=== PATIENT | male | born 1955 | race Caucasian/White ===

== ENCOUNTER 2018-12-05 16:14 | Inpatient (IN) | payer SELFPAY ==
[2018-12-05] MEDS ORDERED: niCARdipine 20MG In NaCl 20 MG/200 ML BAG ONE (17:36)
[2018-12-05 17:37] LABS: Troponin I 0.025 ng/mL (< 0.028)
[2018-12-05 19:41] VITALS: BMI 23.4
[2018-12-05] MEDS: niCARdipine HCl 25 MG in Sodium Chloride 0.9% 250 ML 240 ML IVPB SCH ×2 (20:00→22:32)
[2018-12-05 20:13] LABS: Troponin I 0.031 ng/mL (< 0.028)
[2018-12-05] MEDS ORDERED: Acetaminophen 325 MG TAB PO PRN (20:55)
[2018-12-05] MEDS ORDERED: Potassium Chloride 20 MEQ TAB PO SCH (22:00)
[2018-12-06] MEDS: niCARdipine HCl 25 MG in Sodium Chloride 0.9% 250 ML 240 ML IVPB SCH (01:09)
--- NOTE | 2018-12-06 01:48 | HP ---
CHIEF COMPLAINT: Double vision. HISTORY OF PRESENT ILLNESS: This patient is a 63-year-old male with a history of severe hypertension with noncompliance with his medications. He presented initially to [facility] and then was transferred to this facility. The patient reports that he woke feeling fine today, ate his normal oatmeal this morning and then developed acute onset of double vision. He also had some very slight tingling in the fingertips on his left hand. He was concerned at that point that it might be a stroke, so he called his nephew and had them call an ambulance. He believes that his vision might be slightly better throughout the day, but continues to have his symptoms presently. In the [facility], the patient was noted to have significant deficits of gaze and extraocular muscles. He was also noted to have BP of 244/154 with pulse of 112. He had a head CT, which was negative other than extensive small-vessel ischemic changes and negative chest x-ray. The patient was given IV Cardene starting at 5 mg/hour and 325 mg aspirin and subsequently transferred to this facility. The patient remained on a Cardene drip and his blood pressure did somewhat improve. REVIEW OF SYSTEMS: The patient denies having had any fevers or chills. He does have occasional pain in his right middle finger. Otherwise, all systems were reviewed and all pertinent positives and negatives noted in the history of present illness. Specifically, denies any difficulty with his hearing, taste, or smell. He has no difficulty swallowing. He has had normal appetite. No weight loss. Normal neurologic function other than those things mentioned in history of present illness. PAST MEDICAL HISTORY: Notable for hypertension. The patient reports that he has been treated for hypertensive urgency in the past. He also reports that he was on blood pressure medicines previously, was clonidine. His father recently and he simply did not follow up to get his blood pressure medications refilled because he felt fine. PAST SURGICAL HISTORY: None. FAMILY HISTORY: Mother of complications of perforated bowels with result of a colonoscopy. Father had Parkinson disease with dementia and recently . SOCIAL HISTORY: The patient occasionally drinks beer. He smokes cigarettes as he is now down to less than 1 pack per day. Denies drugs. He is single. He has listed his brother, Shon Aguila as surrogate decision maker, and he is a DNAR. PHYSICAL EXAMINATION: VITAL SIGNS: Most recent BP 152/88, pulse 109, respirations 20, O2 saturation 95% on room air, and temperature 98.0. GENERAL APPEARANCE: Age-appropriate male, in no distress. He is awake, alert, oriented, in no distress. He is cooperative, but very annoyed and aggravated by having been asked the same questions several times throughout the course of his day. HEENT: The patient's pupils are reactive. He has no OP lesions. NECK: Supple and symmetric without lymphadenopathy, JVD, or bruits. HEART: Regular rate and rhythm with 2/6 murmur heard throughout the precordium. HEART: Sounds are slightly hyperdynamic. LUNGS: Clear to auscultation bilaterally with good chest wall expansion and air exchange. ABDOMEN: Soft, nontender, and nondistended. Positive bowel sounds. No masses. No organomegaly. EXTREMITIES: No cyanosis, clubbing, or edema. NEUROLOGIC: The patient has some clear deficits with his gaze, difficult to examine. It appears as though his left eye is deviating slightly laterally, although he has some difficulty gazing to the right past the midline. His eyes tend to wander a bit when trying to comply with any of the instructions, making it difficult to fully assess. He appears to have intact peripheral vision and vision in all of his central mendez. He has possibly some right upper extremity weakness in the proximal muscle group as well compared to the left. Otherwise, appears to have normal strength throughout. Has normal sensation throughout. Cranial nerves otherwise appear to be functional. DIAGNOSTIC DATA: CT scan of the head as mentioned above shows extensive chronic microvascular ischemic changes. CT angio shows no acute vascular abnormalities. There is some atherosclerosis present. LABORATORY DATA: White count 14.0, hemoglobin 18.1, platelets 238. Sodium 138, potassium 3.0, chloride 100, CO2 is 24, BUN 12, creatinine 1.06, glucose 107, lactic acid 1.5, calcium 10.2, AST 30, ALT is 21, CK 241. Initial troponin 0.017, subsequent 0.25, third is 0.031. Albumin 5.0. EKG showed sinus tachycardia with some LVH hypertrophy with strain and left atrial enlargement. IMPRESSION AND PLAN: 1. New onset diplopia, unclear etiology, but given the patient's severe hypertension, his history of smoking and chronic microvascular disease of the brain, certainly possible he has had cerebrovascular accident. The patient had aspirin previously given. Neurology was consulted by phone from [facility]. No tPA was recommended. We will obtain an MRI of the brain in the morning to further elucidate. 2. Hypertensive urgency. The patient may be having some degree of hypertensive encephalopathy causing some of the extraocular movement changes but unlikely, the blood pressure is better. Continuing with the nicardipine drip, we will titrate down as possible, trying to keep the systolic pressure around 185. 3. History of tobacco abuse. 4. Hypokalemia. We will ensure appropriate repletion. Recheck in the morning. Job ID: [id number]
[2018-12-06 04:58] LABS: #Eosinphils 0.1 thou/uL (0.0-0.7); #Lymphocytes 2.2 thou/uL (1.20-3.40); #Monocytes 0.7 thou/uL (0.11-0.59); #Neutrophils 9.4 thou/uL (1.40-6.50); %Basophils 0.3 % (0.0-1.0); %Eosinophils 1.1 % (0.0-10.0); %Lymphocytes 17.6 % (21.0-51.0); %Monocytes 5.8 % (0.0-10.0); %Neutrophils 75.2 % (42.0-75.0); Hemoglobin 16.5 g/dL (14.0-18.0); Mean Corpuscular HGB CONC 36.1 g/dL (32.0-36.0); Mean Corpuscular Hemoglobin 31.9 pg (27.0-31.0); Mean Corpuscular Volume 88.4 fL (78.0-98.0); Mean Platelet Volume 7.3 fL (7.4-10.4); Platelet Count 226 thou/uL (130-400); RBC Distribution Width 12.7 % (11.5-14.5); Red Blood Cell (RBC) Count 5.18 mill/uL (4.70-6.10); White Blood Cell (WBC) Count 12.6 thou/uL (4.8-10.8)
[2018-12-06 05:02] LABS: Anion Gap 16 mmol/L (10-20); BUN (Urea Nitrogen) 11 mg/dL (8.4-25.7); Calc. Creatinine Clearance 110 mL/min (70-130); Calcium 9.3 mg/dL (7.8-10.44); Carbon Dioxide 21 mmol/L (23-31); Cardiac Risk 6.1 (Less than 4.5); Chloride 103 mmol/L (98-107); Cholesterol 207 mg/dl (< 200 Desired); Estimated GFR-MDRD Greater than 90; Glucose 102 mg/dL (80-115); HDL Cholesterol 34 mg/dL (>60 Neg Risk); LDL Cholesterol, Calculated 150 mg/dL; Potassium 3.2 mmol/L (3.5-5.1); Sodium 137 mmol/L (136-145); Triglycerides 114 mg/dL (Less than 150)
[2018-12-06] MEDS ORDERED: Labetalol HCl 100 MG/20 ML VIAL SLOW IVP PRN (09:24)
[2018-12-06] MEDS ORDERED: hydrALAZINE 20 MG/ML VIAL SLOW IVP PRN (09:25)
[2018-12-06] MEDS ORDERED: Hydrochlorothiazide 25 MG TAB PO SCH (09:30)
[2018-12-06] MEDS ORDERED: Potassium Chloride 20 MEQ TAB PO SCH (09:30)
--- NOTE | 2018-12-06 09:30 | PDOC.PN ---
- Subjective Encounter Start Date: 12/06/18 Encounter Start Time: 11:00 Subjective: Patient still with disconjugate gaze, not able to more right eye at all, -: left eye not tracking well. Patient refusing MRI, has heard scary things -: about it. Worried he won't be able to tolerate even with sedation meds. - Objective Resuscitation Status - Order Detail: 12/05/18 20:55 Resuscitation Status Routine Resuscitation Status: PRTL: Cardiac only Discussed with: Patient 12/06/18 04:35 Resuscitation Status Routine Resuscitation Status: FULL: Full Resuscitation Discussed with: Patient JAQUAN Reviewed: Yes Vital Signs & Weight: Vital Signs (12 hours) Temp Pulse Ox 12/06/18 07:36 98 12/06/18 07:00 98.4 F 12/06/18 04:00 98.0 F 12/06/18 00:00 98.1 F Weight Weight 187 lb 13.341 oz Most Recent Monitor Data Heart Rate from ECG 88 NIBP 157/96 NIBP BP-Mean 116 Respiration from ECG 17 SpO2 95 I&O: 12/05/18 12/06/18 12/07/18 06:59 06:59 06:59 Intake Total 250 Output Total 625 380 Balance -625 -130 Result Diagrams: 12/06/18 04:10 12/06/18 04:10 Phys Exam - Physical Examination Constitutional: NAD HEENT: moist MMs pupils reactive, right eye straight ahead, left eye tends to track down and left. Respiratory: no wheezing, no rales, no rhonchi Cardiovascular: RRR, no significant murmur Gastrointestinal: soft, positive bowel sounds Neurological: normal sensation, moves all 4 limbs Psychiatric: normal affect, A&O x 3 Dx/Plan (1) Diplopia Code(s): H53.2 - DIPLOPIA Status: Acute Comment: Possible acute CVA, MRI pending (2) Hypertensive emergency Code(s): I16.1 - HYPERTENSIVE EMERGENCY Status: Acute Comment: Starting oral meds and will titrate off Cardene drip as tolerated, will allow permissive hypertension up to 240/120 for likely acute ischemic stroke. - Plan cont current plan of care, DVT proph w/lovenox, DVT proph w/SCDs Neuro consult, patient refusing MRI * . - Discharge Day Encounter end time: 11:30
[2018-12-06] MEDS ORDERED: Amlodipine 5 MG TAB PO SCH (10:45)
[2018-12-06] MEDS ORDERED: Diazepam 5 MG TAB PO SCH (13:45)
[2018-12-06] MEDS ORDERED: Aspirin 325 MG TAB PO SCH (14:30)
--- NOTE | 2018-12-06 14:51 | CON ---
DATE OF CONSULTATION: HISTORY OF PRESENT ILLNESS: Josue Rangel is a 63-year-old morbidly obese gentleman, 187 pounds, 6 feet 3 inches, who presented to the ER with blurred vision, who apparently has a history of hypertension but apparently he has been taking no medication. His vision got worse. He presented to the ER with markedly elevated blood pressure. He has smoked a pack a day for most of his life. Apparently, he gave a list of Benadryl and Motrin as his list of medicines in home. PAST MEDICAL HISTORY: As per the patient, diabetes, hypertension, takes no medication. PAST SURGICAL HISTORY: Apparently none. SOCIAL HISTORY: Alcohol, minimal. Tobacco, a pack a day. No history of pneumonia or TB. Drugs, substance apparently none. He does small equipment work. REVIEW OF SYSTEMS: Otherwise, unremarkable. PHYSICAL EXAMINATION: VITAL SIGNS: In the ICU, pulse of 93, blood pressure 160/64, temperature NO DISTRESS GENERAL: He is awake, alert, and responsive, in no distress. NEUROLOGIC: He is very appropriate. Moves all four extremities. Blood pressure is improved. CHEST: Decreased breath sounds. No wheezing. CARDIAC: Normal S1 and S2. No gallops. ABDOMEN: No masses. EXTREMITIES: No edema. LABORATORY DATA: White count 12,000, hemoglobin and hematocrit of 15 and 46, platelet count normal. Lytes are normal. Toxicology screen was negative. He had a chest x-ray done, which shows no acute infiltrates. He had a CT angio of chest and head, both were otherwise unremarkable. IMPRESSION: 1. Uncontrolled hypertension. 2. History of diabetes and tobacco abuse. The patient's blood pressure much improved. Once he was stabilized, can be transferred out of the ICU. Ongoing counseling. TIME SPENT: Consultation note, 70 minutes, 50% direct patient care. Job ID: [id number] MTDD
--- NOTE | 2018-12-06 16:23 | MRI ---
MRI BRAIN WITHOUT CONTRAST: INDICATIONS: Question stroke. Visual change. TECHNIQUE: Multiplanar, multisequential imaging of the brain obtained. FINDINGS: Moderately severe chronic ischemic white matter change is noted. Review of diffusion-weighted images show a small focus of restricted diffusion in the anterior brains tem, just to the right of midline. This is just inferior to the sammy. Another possible focus of restricted diffusion is seen in the brainstem, in the midline, at the level of the cerebellar peduncles. No other restricted diffusion identified. No evidence of cortical infarct. The intracranial internal carotid arteries and the proximal cerebral arteries show flow voids. The p aranasal sinuses and mastoids are clear. IMPRESSION: 1. Diffusion-weighted images show evidence of a small acute infarct in the brainstem, just inferior to the sammy, to the right of midline, anteriorly. Another question of a tiny focal infarct in the br ainstem, posteriorly, at the level of the cerebellar peduncles. 2. Moderately severe chronic ischemic white matter change. POS: CHERISE
[2018-12-06] MEDS: Atorvastatin Calcium 40 MG TAB PO SCH (21:47)
[2018-12-07 04:49] LABS: #Eosinphils 0.1 thou/uL (0.0-0.7); #Lymphocytes 2.3 thou/uL (1.20-3.40); #Monocytes 0.9 thou/uL (0.11-0.59); #Neutrophils 8.7 thou/uL (1.40-6.50); %Basophils 0.3 % (0.0-1.0); %Eosinophils 1.2 % (0.0-10.0); %Lymphocytes 18.7 % (21.0-51.0); %Monocytes 7.8 % (0.0-10.0); Hemoglobin 16.2 g/dL (14.0-18.0); Mean Corpuscular HGB CONC 35.7 g/dL (32.0-36.0); Mean Corpuscular Hemoglobin 31.7 pg (27.0-31.0); Mean Corpuscular Volume 88.9 fL (78.0-98.0); Mean Platelet Volume 7.5 fL (7.4-10.4); Platelet Count 225 thou/uL (130-400); RBC Distribution Width 12.8 % (11.5-14.5); Red Blood Cell (RBC) Count 5.09 mill/uL (4.70-6.10); White Blood Cell (WBC) Count 12.1 thou/uL (4.8-10.8)
[2018-12-07 05:07] LABS: Anion Gap 12 mmol/L (10-20); BUN (Urea Nitrogen) 11 mg/dL (8.4-25.7); Calc. Creatinine Clearance 102 mL/min (70-130); Calcium 9.4 mg/dL (7.8-10.44); Carbon Dioxide 22 mmol/L (23-31); Chloride 102 mmol/L (98-107); Estimated GFR-MDRD 84; Glucose 95 mg/dL (80-115); Potassium 3.4 mmol/L (3.5-5.1); Sodium 133 mmol/L (136-145)
[2018-12-07] MEDS: Hydrochlorothiazide 25 MG TAB PO SCH (07:31)
[2018-12-07] MEDS: Enoxaparin Sodium 40 MG/0.4 ML SYRINGE SC SCH (08:43)
[2018-12-07] MEDS: Aspirin 325 MG TAB PO SCH (08:43)
[2018-12-07] MEDS ORDERED: Amlodipine 5 MG TAB PO SCH (09:00)
[2018-12-07] MEDS ORDERED: Amlodipine 10 MG TAB PO SCH (09:11)
[2018-12-07] MEDS ORDERED: diphenhydrAMINE 25 MG CAP PO PRN ×2 (09:14→09:50)
--- NOTE | 2018-12-07 09:52 | PDOC.PN ---
- Subjective Encounter Start Date: 12/07/18 Encounter Start Time: 11:30 Subjective: Patient thinks he is managing his vision a bit better. If turns his head -: instead of try to look to the side he can avoid some of the double vision - Objective Resuscitation Status - Order Detail: 12/05/18 20:55 Resuscitation Status Routine Resuscitation Status: PRTL: Cardiac only Discussed with: Patient JAQUAN Reviewed: Yes Vital Signs & Weight: Vital Signs (12 hours) Temp Pulse BP 12/07/18 07:31 78 181/102 H 12/07/18 04:00 97.7 F 12/07/18 00:00 98.7 F Weight Weight 187 lb 13.341 oz Most Recent Monitor Data Heart Rate from ECG 79 NIBP 169/111 NIBP BP-Mean 130 Respiration from ECG 15 SpO2 98 I&O: 12/06/18 12/07/18 12/08/18 06:59 06:59 06:59 Intake Total 950 340 Output Total 625 2745 0 Balance -293 -1001 340 Result Diagrams: 12/07/18 04:17 12/07/18 04:17 Phys Exam - Physical Examination Constitutional: NAD HEENT: moist MMs Right eye with no lateral movement, better coordination with left Respiratory: no wheezing, no rales, no rhonchi Cardiovascular: RRR, no significant murmur Gastrointestinal: soft, positive bowel sounds Neurological: non-focal, moves all 4 limbs Psychiatric: normal affect, A&O x 3 Dx/Plan (1) Diplopia Code(s): H53.2 - DIPLOPIA Status: Acute Comment: secondary to acute CVA (2) Hypertensive emergency Code(s): I16.1 - HYPERTENSIVE EMERGENCY Status: Resolved Comment: Off Cardene, on oral medications (3) Brainstem stroke Code(s): I63.9 - CEREBRAL INFARCTION, UNSPECIFIED Status: Acute Comment: Neurology consulted, started Aspirin and Statin. (4) Hypertension Code(s): I10 - ESSENTIAL (PRIMARY) HYPERTENSION Status: Chronic Qualifiers: Hypertension type: essential hypertension Qualified Code(s): I10 - Essential (primary) hypertension - Plan cont current plan of care, PT/OT, DVT proph w/lovenox, DVT proph w/SCDs Will stay with sister in [place] once discharge. Awaiting neurology -: evaluation and plan. Can d/c when ok with neurology. * . - Discharge Day Encounter end time: 11:45 Pulmonology Consult: Meds - Medications MAR Reviewed: Yes Medications: Current Medications Acetaminophen (Tylenol) 650 mg PO Q4H PRN PRN Reason: Headache/Fever/Mild Pain (1-3) Amlodipine Besylate (Norvasc) 10 mg PO DAILY [facility] Aspirin (Aspirin) 325 mg PO DAILY [facility] Last Admin: 12/07/18 08:43 Dose: 325 mg Atorvastatin Calcium (Lipitor) 40 mg PO HS [facility] Last Admin: 12/06/18 21:47 Dose: 40 mg Diphenhydramine HCl (Benadryl) 50 mg PO Q6H PRN PRN Reason: Allergy symptoms Enalapril Maleate (Vasotec) 10 mg PO DAILY [facility] Last Admin: 12/07/18 07:31 Dose: 10 mg Enoxaparin Sodium (Lovenox) 40 mg SC 0900 [facility] Last Admin: 12/07/18 08:43 Dose: 40 mg Hydralazine HCl (Apresoline) 10 mg SLOW IVP Q4H PRN PRN Reason: Severe Hypertension Hydrochlorothiazide (Hydrochlorothiazide) 25 mg PO DAILY [facility] Last Admin: 12/07/18 07:31 Dose: 25 mg Labetalol HCl (Normodyne) 10 mg SLOW IVP Q4H PRN PRN Reason: SBP Greater Than 180 - Allergies Allergies/Adverse Reactions: Allergies Allergy/AdvReac Type Severity Reaction Status Date / Time No Known Drug Allergies Allergy Verified 12/06/18 16:51
--- NOTE | 2018-12-07 09:55 | PRG ---
DATE OF SERVICE: 12/07/2018 SUBJECTIVE: This morning, he is somewhat better, awake, alert, responsive. Pulse 82, saturations 92%, respirations 20. He had an MRI of his head done yesterday, which showed small acute infarct in the brainstem area just inferior to the sammy. OBJECTIVE: VITAL SIGNS: Blood pressures remain elevated this morning 181/100, pulse 83, respirations 23, saturations 96%. CHEST: Decreased breath sounds. No wheezing. CARDIAC: Normal S1 and S2. No gallops. ABDOMEN: No mass. IMPRESSION: 1. Small pontine infarct seen on MRI. 2. Hypertension. PLAN: Continue antihypertensive medication. PT and supportive care. Neurology consult. Job ID: [id number]
[2018-12-07] MEDS: Atorvastatin Calcium 40 MG TAB PO SCH (21:32)
--- NOTE | 2018-12-08 00:31 | CON ---
DATE OF CONSULTATION: 12/07/2018 CONSULTING PHYSICIAN: Hospitalist Service. IMPRESSION: 1. Brainstem stroke with internuclear ophthalmoplegia. 2. Moderately severe microvascular disease. 3. Hypertension with poor compliance. PLAN: 1. Continue aspirin. 2. Add a statin. 3. Blood pressure control. HISTORY OF PRESENT ILLNESS: Mr. Rangel is a 63-year-old man who presented with complaints of acute onset of double vision. There was no associated headache, slurred speech, nausea, vomiting, dizziness, lateralized weakness, or numbness of any persistent nature. He did note some transient tingling in the left hand. He presented to [facility] with complaints of double vision. He was noted to have an ophthalmoplegia and was transferred here. Subsequent MRI of the brain shows evidence of an acute posterior sammy area of acute ischemia. There is moderate amount of microvascular disease as well. His echocardiogram showed a normal ejection fraction of 60% to 65%. CT angio did not reveal any extracranial stenosis. His personal observation is that his eyes seem to be doing better than yesterday. PAST MEDICAL HISTORY: Hypertension. ALLERGIES: NONE. SOCIAL HISTORY: He lives alone. No alcohol or illicit drug use. FAMILY HISTORY: Parkinson's. MEDICATION LIST: 1. Clonidine. 2. Hydrochlorothiazide. REVIEW OF SYSTEMS: No complaint of chest pain, shortness of breath, lateralized weakness, or numbness. PHYSICAL EXAMINATION: GENERAL: This is a well-nourished, middle-aged man, in no acute distress. VITAL SIGNS: Blood pressure 178/110, pulse 65, respirations 18, temperature 97.3. HEENT: Pupils are equal and reactive. Conjunctivae clear. Oropharynx clear. NECK: Supple. No lymphadenopathy noted. EXTREMITIES: No cyanosis, clubbing, or edema. NEUROLOGIC: He is alert and cooperative. Speech is fluent and clear. Cranial nerve exam was notable for the right eye inability to nasally move and as well as laterally move, up gaze and down gaze were intact. Left eye had similar deficits, but not to the same severity. There was a slight right facial flattening. Motor exam shows good strength bilaterally. Cerebellar testing showed normal onrouq-fr-ewic and rapid alternating movements. Sensation was intact to light touch. He could sit at the bedside and had no problems standing and maintaining balance. LABORATORY STUDIES: Show unremarkable CBC and serum chemistries. His total cholesterol is 207 with a risk ratio of 6.1. MRI images were reviewed. SUMMARY: A middle-aged man with extensive microvascular disease, presents with acute brain stem stroke. His symptoms seem to be improving, and his hyperlipidemia needs to be addressed. His blood pressure management is underway, but not quite settled at this point. I suspect, he will do reasonably well in recovery. I agree with your plan of care. Job ID: [id number]
--- NOTE | 2018-12-08 07:12 | PDOC.PN ---
- Subjective Encounter Start Date: 12/08/18 Encounter Start Time: 09:00 Subjective: Patient reports vision improved some. Still not able to move right -: eye laterally. No other complaints. Eager to go home. - Objective Resuscitation Status - Order Detail: 12/05/18 20:55 Resuscitation Status Routine Resuscitation Status: PRTL: Cardiac only Discussed with: Patient JAQUAN Reviewed: Yes Vital Signs & Weight: Vital Signs (12 hours) Temp Pulse Resp BP Pulse Ox 12/08/18 04:00 97.5 F L 68 16 161/94 H 95 12/08/18 02:00 179/103 H 12/08/18 00:43 72 12/07/18 23:59 97.8 F 72 16 200/112 H 98 12/07/18 21:47 69 12/07/18 20:25 96 12/07/18 19:59 99.2 F 69 16 185/112 H 96 Weight Weight 187 lb 13.341 oz Most Recent Monitor Data Heart Rate from ECG 66 NIBP 163/114 NIBP BP-Mean 130 Respiration from ECG 16 SpO2 96 I&O: 12/07/18 12/08/18 12/09/18 06:59 06:59 06:59 Intake Total 950 1060 Output Total 2745 875 Balance -1795 185 Result Diagrams: 12/07/18 04:17 12/07/18 04:17 Phys Exam - Physical Examination Constitutional: NAD HEENT: moist MMs Right eye with only vertical movement, left with full ROM Respiratory: no wheezing, no rales, no rhonchi Cardiovascular: RRR, no significant murmur Gastrointestinal: soft, non-tender, positive bowel sounds Neurological: non-focal, moves all 4 limbs Psychiatric: normal affect, A&O x 3 Dx/Plan (1) Diplopia Code(s): H53.2 - DIPLOPIA Status: Acute Comment: secondary to acute CVA (2) Hypertensive emergency Code(s): I16.1 - HYPERTENSIVE EMERGENCY Status: Resolved Comment: Off Cardene, on oral medications (3) Brainstem stroke Code(s): I63.9 - CEREBRAL INFARCTION, UNSPECIFIED Status: Acute Comment: Neurology consulted, started Aspirin and Statin. (4) Hypertension Code(s): I10 - ESSENTIAL (PRIMARY) HYPERTENSION Status: Chronic Qualifiers: Hypertension type: essential hypertension Qualified Code(s): I10 - Essential (primary) hypertension Comment: Amlodipine increased, will increase Enalapril today. (5) Diabetes mellitus type 2 in nonobese Code(s): E11.9 - TYPE 2 DIABETES MELLITUS WITHOUT COMPLICATIONS Status: Chronic Comment: Patient reports previous dx of DM type 2. BS ok in hospital but higher at home on his typical diet. Previously on Metformin. Will restart and have f/u with PCP. - Plan cont current plan of care, PT/OT, DVT proph w/lovenox, DVT proph w/SCDs D/C home on increased dose of Enalapril. F/u with PCP. -: Recommend wearing patch on right eye. * . - Discharge Day Encounter end time: 09:30
[2018-12-08 08:03] VITALS: TEMP 97.7
[2018-12-08] MEDS: Enoxaparin Sodium 40 MG/0.4 ML SYRINGE SC SCH (08:51)
[2018-12-08] MEDS: Aspirin 325 MG TAB PO SCH (08:51)
[2018-12-08] MEDS: Hydrochlorothiazide 25 MG TAB PO SCH (08:52)
[2018-12-08 19:45] VITALS: BP 183/111
--- NOTE | 2018-12-09 02:21 | DIS ---
DATE OF ADMISSION: 12/05/2018 DATE OF DISCHARGE: 12/08/2018 PRIMARY CARE PHYSICIAN: Giovanni Serrano MD. REASON FOR ADMISSION: Diplopia. DIAGNOSES AT DISCHARGE: 1. Ischemic stroke of the brainstem. 2. Diplopia. 3. Hypertensive emergency, resolved. 4. Uncontrolled hypertension. 5. Diabetes mellitus type 2 by history. CONSULTATIONS: 1. Pulmonology, Isaac Watts MD. 2. Neurology, Dr. Mariano. PROCEDURES: 1. MRI of the brain showing small acute infarct in the brainstem just inferior to the sammy to the right of the midline anteriorly. Another possible tiny focal infarct posteriorly at the level of the cerebellar peduncles, as well as some moderately severe chronic ischemic white matter change. 2. Echocardiogram showing an ejection fraction of 60% to 65% and diastolic dysfunction. SUMMARY OF HOSPITAL COURSE: This is a 63-year-old white male with a known history of severe hypertension and later on turns out mild diabetes, who had been off his medication for sometime now and felt fine, so he never went back to his primary care doctor to get a refill. He developed tingling in his left hand and double vision, so he went to the emergency room and there, he was found to have hypertensive emergency and Cardene drip was started. CT of the head was negative. His numbness and tingling in his hand went away. However, his double vision persisted and noted that his right eye could not move laterally at all, just up and down. The patient was transferred to the hospital here. After some initial reluctance, the patient eventually agree to an MRI. This showed the above findings of a brainstem stroke. The patient was treated with aspirin, atorvastatin, and blood pressure medications. Dr. Mariano, Neurology, evaluated him. It was recommended that the patient start to use a patch on his right eye. He improved during hospitalization, though still without good movement of the right eye. He is cleared to be discharged home. DISCHARGE MANAGEMENT: Discharged home. FOLLOWUP: Follow up with primary care doctor in 7 days. ACTIVITY: As tolerated. DIET: Diabetic, low-sodium diet. MEDICATIONS: 1. Amlodipine 10 mg daily, 30 tablets dispensed. 2. Aspirin 325 mg, 30 tablets daily, 3 tablets dispensed. 3. Atorvastatin 40 mg at night, 30 tablets dispensed. 4. Enalapril 20 mg daily, 30 tablets dispensed. 5. Hydrochlorothiazide 25 mg daily, 30 tablets dispensed. 6. Metformin 500 mg twice a day, 60 tablets dispensed. Arranging the details of this discharge took 32 minutes. Job ID: [id number] MTDD
== END 2018-12-08 14:02 | disposition home or self-care (01) | DRG 65 ==
LOC: ERS 16:14 → CCU 16:40 → 2SE 12-07 17:19
PROVIDERS: ADMIT Internal Medicine; ATTEND Internal Medicine
DX: I63.9 Cerebral infarction, unspecified (principal); I16.1 Hypertensive emergency; E87.6 Hypokalemia; E11.9 Type 2 diabetes mellitus without complications; H51.20 Internuclear ophthalmoplegia, unspecified eye; R29.703 NIHSS score 3; E78.5 Hyperlipidemia, unspecified; R20.2 Paresthesia of skin; F17.210 Nicotine dependence, cigarettes, uncomplicated; R20.0 Anesthesia of skin; Z91.14 Patient's other noncompliance with medication regimen
CPT/HCPCS: 36415; 70551; 80048; 80061; 85025; 90471; 90732; 93306; 94760; 96365; 96366; G0009; J0360; J1650; J7050